=== PATIENT | male | born 1965 | race Asian ===

== ENCOUNTER 2019-02-23 17:30 | Inpatient (IN) | payer OTHER ==
[~2019-02-23] VITALS: Ht 175.3 cm; Wt 85.7 kg
[2019-02-23] MEDS ORDERED: ONDANSETRON HCL 4MG/2ML INJ IV STA (17:35)
[2019-02-23] MEDS ORDERED: EPINEPHRINE 0.1MG/ML (1:10,000) 10ML SYR ONE ×2 (17:45→18:14)
[2019-02-23 18:26] LABS: HEMATOCRIT. 45.1 % (42.0-52.0); HEMOGLOBIN. 13.1 g/dL (14.0-18.0); MEAN CORPUSCULAR HEMOGLOBIN 22.2 pg (28.0-32.0); MEAN CORPUSCULAR VOLUME 76.1 fL (80.0-94.0); RED BLOOD CELL COUNT 5.93 mill/uL (4.7-6.1); RED CELL DISTRIBUTION WIDTH 20.4 % (11.6-14.6)
[2019-02-23 18:30] LABS: CHLORIDE 107 mEq/L (98-107)
[2019-02-23] MEDS ORDERED: EPINEPHRINE 1 MG in SODIUM CHLORIDE 0.9% 250 ML IV NR (18:30)
[2019-02-23] MEDS ORDERED: EPINEPHRINE 1 MG in SODIUM CHLORIDE 0.9% 249 ML IV PRN (18:30)
[2019-02-23 18:31] LABS: INR 1.6; PARTIAL THROMBOPLASTIN TIME 30.8 sec (23.4-31.0); PROTHROMBIN TIME 16.6 sec (9.6-11.0)
[2019-02-23 18:44] LABS: MEAN PLATELET VOLUME 10.8 fl (7.4-10.4); PLATELET 115 x1000/uL (130-400)
[2019-02-23 18:47] LABS: NUCLEATED RED BLOOD CELLS 6 /100 WBC; PLATELET ESTIMATE DECREASED
[2019-02-23] MEDS ORDERED: ASPIRIN 300MG SUPP PR ONE (19:00)
[2019-02-23] MEDS ORDERED: POTASSIUM CHLORIDE INJ 40 MEQ in DEXT 5% WATER 250 ML IV NR (19:00)
[2019-02-23] MEDS ORDERED: ENOXAPARIN 30MG/0.3ML SYR SUBCUT ONE (19:30)
[2019-02-23 20:04] LABS: BG BASE EXCESS -15.8 mmol/L (-2.0-2.0); BG CARBOXYHEMOGLOBIN 1.1 % (0.5-1.5); BG DEOXYHEMOGLOBIN 0.4 % (0.0-5.0); BG FRACTION INSPIRED OXYGEN 100; BG HCO3 ACT 15.8 mmol/L (22.0-26.0); BG METHEMOGLOBIN 0.4 % (0.0-1.5); BG OXYGEN SATURATION 99.6 % (92.0-98.5); BG OXYHEMOGLOBIN 98.1 % (94.0-97.0); BG PCO2 62.8 mmHg (35.0-45.0); BG PH 7.019 (7.350-7.450); BG PO2 299.3 mmHg (75.0-100.0); BG SAMPLE SITE RIGHT RADIAL; BG TIDAL VOLUME(mL) 550 mL; BG TOTAL HEMOGLOBIN 14.4 g/dL (12.0-18.0); BG VENT MODE VENT - A/C; BG VENT RATE 17 set
[2019-02-23] MEDS ORDERED: HEPARIN 25,000 UNITS PREMIX 500 ML IV ONE ×2 (20:30→22:30)
[2019-02-23] MEDS ORDERED: SODIUM CHLORIDE 0.9% 1,000 ML IV ONE (20:30)
[2019-02-23] MEDS ORDERED: CALCIUM GLUCONATE 100MG/ML 10ML VIAL IV ONE (20:30)
[2019-02-23] MEDS ORDERED: POTASSIUM CHLORIDE INJ 40 MEQ in DEXT 5% WATER 250 ML IV ONE (20:45)
[2019-02-23] MEDS ORDERED: NOREPINEPHRINE 4 MG in DEXT 5% WATER 246 ML IV ONE (21:45)
[2019-02-23] MEDS ORDERED: DOPAMINE 400MG/250ML PREMIX 250 ML IV ONE (21:45)
[2019-02-23] MEDS ORDERED: SODIUM BICARBONATE 8.4% 1 MEQ/ML 50ML SYR IV ONE ×2 (21:50→22:21)
[2019-02-23 21:53] LABS: BG BASE EXCESS -16.4 mmol/L (-2.0-2.0); BG CARBOXYHEMOGLOBIN 0.9 % (0.5-1.5); BG DEOXYHEMOGLOBIN 0.5 % (0.0-5.0); BG FRACTION INSPIRED OXYGEN 100; BG HCO3 ACT 12.1 mmol/L (22.0-26.0); BG METHEMOGLOBIN 0.4 % (0.0-1.5); BG OXYGEN SATURATION 99.5 % (92.0-98.5); BG OXYHEMOGLOBIN 98.2 % (94.0-97.0); BG PCO2 37.8 mmHg (35.0-45.0); BG PH 7.123 (7.350-7.450); BG PO2 261.3 mmHg (75.0-100.0); BG SAMPLE SITE RIGHT FEMORAL; BG TIDAL VOLUME(mL) 550 mL; BG TOTAL HEMOGLOBIN 14.4 g/dL (12.0-18.0); BG VENT MODE VENT - A/C; BG VENT RATE 22 set
[2019-02-23] MEDS ORDERED: NOREPINEPHRINE 4MG/250ML PMX 250 ML IV ONE (22:15)
[2019-02-23 23:00] VITALS: BP 123/88
[2019-02-23 23:15] VITALS: BP 127/74
[2019-02-23] MEDS ORDERED: ENOXAPARIN 40MG/0.4ML SYR SUBCUT SCH (23:15)
[2019-02-23] MEDS ORDERED: LORAZEPAM 2MG/ML CPJ IV PRN (23:15)
[2019-02-23] MEDS ORDERED: ACETAMINOPHEN 650MG SUPP PR PRN (23:15)
[2019-02-23] MEDS ORDERED: ONDANSETRON HCL 4MG/2ML INJ IV PRN (23:15)
[2019-02-23] MEDS ORDERED: MORPHINE SULFATE 2 MG/ML CPJ (NOT FOR IM USE) IV PRN (23:16)
[2019-02-23 23:30] VITALS: BP 123/88
[2019-02-23] MEDS ORDERED: DEXT 5%/0.45% NACL KCL 10MEQ/L 1,000 ML IV SCH (23:30)
[2019-02-23 23:31] LABS: BG BASE EXCESS -11.8 mmol/L (-2.0-2.0); BG CARBOXYHEMOGLOBIN 1.5 % (0.5-1.5); BG DEOXYHEMOGLOBIN 0.4 % (0.0-5.0); BG FRACTION INSPIRED OXYGEN 100; BG HCO3 ACT 17.7 mmol/L (22.0-26.0); BG METHEMOGLOBIN 0.4 % (0.0-1.5); BG OXYGEN SATURATION 99.6 % (92.0-98.5); BG OXYHEMOGLOBIN 97.7 % (94.0-97.0); BG PCO2 54.6 mmHg (35.0-45.0); BG PH 7.128 (7.350-7.450); BG PO2 249.4 mmHg (75.0-100.0); BG SAMPLE SITE LEFT BRACHIAL; BG TIDAL VOLUME(mL) 550 mL; BG TOTAL HEMOGLOBIN 14.1 g/dL (12.0-18.0); BG VENT MODE VENT - A/C; BG VENT RATE 22 set
[2019-02-23] MEDS ORDERED: HEPARIN 25,000 UNITS PREMIX 500 ML IV SCH (23:45)
[2019-02-23] MEDS ORDERED: DOPAMINE 800MG PREMIX (DOUBLE) 250 ML IV PRN (23:45)
[2019-02-24] VITALS (88 sets, daily range): BP systolic 0–175; BP diastolic 0–127
[2019-02-24] MEDS ORDERED: SODIUM BICARBONATE 100 MEQ in DEXTROSE 5% WATER 1,000 ML IV SCH ×2
[2019-02-24] MEDS ORDERED: EPINEPHRINE 1 MG in SODIUM CHLORIDE 0.9% 249 ML IV PRN (00:15)
[2019-02-24] MEDS: NOREPINEPHRINE 16 MG in DEXT 5% WATER 234 ML IV PRN ×2 (00:15→11:27)
[2019-02-24] MEDS ORDERED: EPINEPHRINE 4 MG in SODIUM CHLORIDE 0.9% 249 ML IV PRN (00:30)
[2019-02-24] MEDS ORDERED: HEPARIN 25,000 UNITS PREMIX 500 ML IV SCH (01:00)
[2019-02-24] MEDS ORDERED: HEPARIN BOLUS PRN aPTT 30-44 IV (01:00)
[2019-02-24] MEDS ORDERED: HEPARIN BOLUS PRN aPTT <30 IV (01:00)
[2019-02-24] MEDS ORDERED: SODIUM BICARBONATE 100 MEQ in DEXT 5%/0.9% NACL 1,000 ML IV SCH (01:00)
[2019-02-24] MEDS: EPINEPHRINE 4 MG in SODIUM CHLORIDE 0.9% 246 ML IV PRN ×3 (01:37→12:33)
[2019-02-24 03:17] LABS: HEMATOCRIT. 50.4 % (42.0-52.0); HEMOGLOBIN. 14.5 g/dL (14.0-18.0); MEAN CORPUSCULAR HEMOGLOBIN 22.1 pg (28.0-32.0); MEAN CORPUSCULAR VOLUME 76.8 fL (80.0-94.0); MEAN PLATELET VOLUME 11.1 fl (7.4-10.4); PLATELET 230 x1000/uL (130-400); RED BLOOD CELL COUNT 6.56 mill/uL (4.7-6.1); RED CELL DISTRIBUTION WIDTH 20.8 % (11.6-14.6)
[2019-02-24 03:36] LABS: CHLORIDE 113 mEq/L (98-107); INR 2.4; PARTIAL THROMBOPLASTIN TIME 73.8 sec (23.4-31.0); PROTHROMBIN TIME 24.3 sec (9.6-11.0)
[2019-02-24 03:43] LABS: LDL CHOLESTEROL 56 mg/dL (5-100)
[2019-02-24 03:44] LABS: HDL CHOLESTEROL 24 mg/dL (40-59)
[2019-02-24 03:45] LABS: T4 FREE 1.17 ng/dL (0.76-1.46)
[2019-02-24] MEDS ORDERED: DEXTROSE 50% WATER 50ML SYRINGE IV PRN (04:15)
[2019-02-24] MEDS: PHENYLEPHRINE 40 MG in DEXT 5% WATER 246 ML IV PRN ×3 (05:10→14:01)
[2019-02-24] MEDS: INSULIN LISPRO 100 UNITS/ML SUBCUT SCH ×3 (07:50→16:19)
[2019-02-24] MEDS ORDERED: BLOOD SUGAR DIAGNOSTIC STRIP TEST SCH (07:50)
[2019-02-24] MEDS ORDERED: SODIUM BICARBONATE IV SCH (08:04)
[2019-02-24] MEDS ORDERED: DEXT 5% IV SCH (08:04)
[2019-02-24] MEDS ORDERED: WATER IV SCH (08:04)
[2019-02-24 08:41] LABS: BG BASE EXCESS -9.8 mmol/L (-2.0-2.0); BG CARBOXYHEMOGLOBIN 0.9 % (0.5-1.5); BG DEOXYHEMOGLOBIN 10.1 % (0.0-5.0); BG HCO3 ACT 17.5 mmol/L (22.0-26.0); BG METHEMOGLOBIN 0.2 % (0.0-1.5); BG OXYGEN SATURATION 89.8 % (92.0-98.5); BG OXYHEMOGLOBIN 88.8 % (94.0-97.0); BG PCO2 43.4 mmHg (35.0-45.0); BG PH 7.224 (7.350-7.450); BG PO2 65.8 mmHg (75.0-100.0); BG SAMPLE SITE RIGHT RADIAL; BG TIDAL VOLUME(mL) 550 mL; BG TOTAL HEMOGLOBIN 15.2 g/dL (12.0-18.0); BG VENT MODE VENT - A/C; BG VENT RATE 22 set
[2019-02-24 08:45] LABS: BG BASE EXCESS -6.1 mmol/L (-2.0-2.0); BG HCO3 ACT 24.4 mmol/L (22.0-26.0); BG METHEMOGLOBIN 0.2 % (0.0-1.5); BG OXYGEN SATURATION 33.2 % (92.0-98.5); BG OXYHEMOGLOBIN 32.8 % (94.0-97.0); BG PCO2 72.1 mmHg (35.0-45.0); BG PH 7.148 (7.350-7.450); BG PO2 < 30.3 mmHg (75.0-100.0); BG SAMPLE SITE RIGHT FEMORAL; BG TIDAL VOLUME(mL) 550 mL; BG TOTAL HEMOGLOBIN 15.1 g/dL (12.0-18.0); BG VENT MODE VENT - A/C; BG VENT RATE 22 set
[2019-02-24] MEDS ORDERED: SODIUM BICARBONATE 100 MEQ in DEXT 5%/0.45% NACL 1000ML 1,000 ML IV SCH (09:00)
[2019-02-24 10:50] LABS: NUCLEATED RED BLOOD CELLS 6 /100 WBC
[2019-02-24 10:53] LABS: PLATELET ESTIMATE NORMAL
[2019-02-24] MEDS: BLOOD SUGAR DIAGNOSTIC STRIP TEST SCH ×2 (12:00→16:00)
[2019-02-24] MEDS: PIPERACILLIN/TAZOBACTAM 2.25 G in DEXTROSE 5% WATER 50 ML IV SCH ×2 (12:32→17:01)
[2019-02-24 13:19] LABS: BG BASE EXCESS -7.8 mmol/L (-2.0-2.0); BG CARBOXYHEMOGLOBIN 1.2 % (0.5-1.5); BG DEOXYHEMOGLOBIN 11.6 % (0.0-5.0); BG FRACTION INSPIRED OXYGEN 100; BG HCO3 ACT 18.5 mmol/L (22.0-26.0); BG METHEMOGLOBIN 0.3 % (0.0-1.5); BG OXYGEN SATURATION 88.2 % (92.0-98.5); BG OXYHEMOGLOBIN 86.9 % (94.0-97.0); BG PCO2 40.3 mmHg (35.0-45.0); BG PH 7.279 (7.350-7.450); BG PO2 60.3 mmHg (75.0-100.0); BG SAMPLE SITE A-LINE; BG TIDAL VOLUME(mL) 550 mL; BG TOTAL HEMOGLOBIN 14.8 g/dL (12.0-18.0); BG VENT MODE VENT - A/C; BG VENT RATE 26 set
[2019-02-24 16:23] LABS: CHLORIDE 111 mEq/L (98-107)
[2019-02-24 16:34] LABS: HEMATOCRIT. 46.8 % (42.0-52.0); HEMOGLOBIN. 13.9 g/dL (14.0-18.0); MEAN CORPUSCULAR VOLUME 74.2 fL (80.0-94.0); MEAN PLATELET VOLUME 10.9 fl (7.4-10.4); PLATELET 201 x1000/uL (130-400); RED BLOOD CELL COUNT 6.31 mill/uL (4.7-6.1); RED CELL DISTRIBUTION WIDTH 20.2 % (11.6-14.6)
[2019-02-24] MEDS ORDERED: SODIUM POLYSTYRENE SULFONATE 15 G/60 ML BOT NG NR (18:30)
[2019-02-24] MEDS ORDERED: MORPHINE SULFATE 250 MG in DEXT 5% WATER 240 ML IV PRN (19:00)
[2019-02-24 21:10] LABS: NUCLEATED RED BLOOD CELLS 17 /100 WBC; PLATELET ESTIMATE NORMAL
== END 2019-02-24 20:25 | disposition expired | DRG 190 ==
LOC: ER 17:30 → CVICU 20:18 → EDBD 20:18 → CANRESERV 20:32 → ENRESERV 20:32 → EDBEDREQSVC 20:46 → ENRESERV 20:55
PROVIDERS: ADMIT Hospitalist; ATTEND Hospitalist
PROC: 5A1945Z Respiratory Ventilation, 24-96 Consecutive Hours (ICD-10-PCS; principal; 2019-02-23)
PROC: 0BH17EZ Insertion of Endotracheal Airway into Trachea, Via Natural or Artificial Opening (ICD-10-PCS; 2019-02-23)
DX: I21.4 Non-ST elevation (NSTEMI) myocardial infarction (principal); J96.02 Acute respiratory failure with hypercapnia; K72.00 Acute and subacute hepatic failure without coma; N17.0 Acute kidney failure with tubular necrosis; I46.9 Cardiac arrest, cause unspecified; D68.9 Coagulation defect, unspecified; I95.9 Hypotension, unspecified; I50.43 Acute on chronic combined systolic (congestive) and diastolic (congestive) heart failure; E11.649 Type 2 diabetes mellitus with hypoglycemia without coma; I49.01 Ventricular fibrillation; E87.2 Acidosis; I11.0 Hypertensive heart disease with heart failure; D72.829 Elevated white blood cell count, unspecified; I25.10 Atherosclerotic heart disease of native coronary artery without angina pectoris; I42.9 Cardiomyopathy, unspecified; I48.91 Unspecified atrial fibrillation; Z66 Do not resuscitate; E87.0 Hyperosmolality and hypernatremia; R74.0 Nonspecific elevation of levels of transaminase and lactic acid dehydrogenase [LDH]; Z79.899 Other long term (current) drug therapy
CPT/HCPCS: 36415; 36600; 71045; 78580; 80061; 80307; 82375; 82805; 82962; 83735; 83880; 84132; 84439; 84443; 84484; 87070; 93005; 93306; 93970; 94002; 99291; J0610; J1265; J1644; J1650; J2370; J2405; J2543; J3480; J3490; J7030; J7040; J7042; J7050; J7060